=== PATIENT | male | born 1935 | race Caucasian/White ===

== ENCOUNTER 2017-05-01 22:16 | Emergency (ER) | payer OTHER ==
[~2017-05-01] VITALS: Ht 172.7 cm; Wt 113.4 kg
[2017-05-01 22:31] VITALS: BP 174/80
[2017-05-02] MEDS ORDERED: diphenhdrAMINE HCL 50 MG/1 ML VL IV ONE (00:45)
[2017-05-02] MEDS ORDERED: FAMOTIDINE 20 MG TAB PO ONE (00:45)
[2017-05-02] MEDS ORDERED: diphenhdrAMINE HCL 50 MG/1 ML VL IM ONE (00:45)
[2017-05-02] MEDS ORDERED: DEXAMETHASONE 4 MG TAB PO ONE (00:45)
== END 2017-05-02 01:23 | disposition home or self-care (01) ==
LOC: ER 22:16 → EDBD 22:16 → ER 05-02 01:23
DX: L50.0 Allergic urticaria (principal); T78.40XA Allergy, unspecified, initial encounter; M10.9 Gout, unspecified; K21.9 Gastro-esophageal reflux disease without esophagitis; I10 Essential (primary) hypertension; E78.5 Hyperlipidemia, unspecified
CPT/HCPCS: 96374; 99284; J1200; J8540